=== PATIENT | female | born 1970 | race Asian ===

== ENCOUNTER 2018-02-26 07:19 | Outpatient (CLI) | payer OTHER ==
--- NOTE | 2018-02-26 09:55 | MRI Report ---
Procedure Date: 02/26/2018 Accession Number: [id number] / [id number] Procedure: MRI - Knee RT W/O CPT Code: FULL RESULT: EXAM: RIGHT KNEE MRI WITHOUT CONTRAST EXAM DATE: 02/26/2018 08:04 AM. CLINICAL HISTORY: Pain in right knee. COMPARISON: None. TECHNIQUE: Multiplanar, multisequence T1-weighted and fluid-sensitive sequences of the knee without contrast. Other: None. FINDINGS: Bones: No fractures or subluxations. No marrow edema. No bone lesions. Articular Cartilage: Unremarkable. Medial Meniscus: The medial meniscus is intact. Lateral Meniscus: The lateral meniscus is intact. Cruciate Ligaments: The anterior and posterior cruciate ligaments are intact. Collateral Ligaments: The medial collateral and lateral collateral ligamentous structures are intact. Tendons: The quadriceps, patellar, semimembranosus, and popliteus tendons are unremarkable. Musculature: No edema or fatty atrophy. Other: No effusion. No popliteal cyst. No loose bodies. The medial and lateral retinacula are intact. The subcutaneous tissues and fat pads are unremarkable. IMPRESSION: No MRI abnormalities in the knee. Menisci, cruciates and collaterals appear unremarkable. RADIA MUSCULOSKELETAL RADIOLOGY SECTION
== END 2018-02-26 07:20 | disposition home or self-care (01) ==
LOC: DI 07:19
PROVIDERS: ATTEND Physician Assistant
DX: M25.561 Pain in right knee (principal)

== ENCOUNTER 2021-03-16 19:48 | Outpatient (CLI) | payer OTHER | END 2021-03-16 23:59 | disposition home or self-care (01) | LOC: LAB.N 19:48 | PROVIDERS: ATTEND Emergency Medicine | DX: R05 Cough (principal); Z20.822 Contact with and (suspected) exposure to COVID-19 ==

== ENCOUNTER 2024-02-19 07:25 | Outpatient (CLI) | payer OTHER ==
--- NOTE | 2024-02-20 10:38 | Ultrasound Report ---
LIMITED ULTRASOUND OF LEFT BREAST: 02/19/2024 CLINICAL: Patient returns today to evaluate a focal asymmetry in the left breast. Comparison is made to exams dated: 02/19/2024 ultrasound, 02/19/2024 mammogram - [facility], 05/01/2023 ultrasound, 09/25/2022 ultrasound, 09/25/2022 mammogram, and 11/23/2018 mammogram - [facility]. Color flow and real-time ultrasound of the left breast 3 o'clock region were performed. Stinson scale images of the real-time examination were reviewed. There is a stable 0.4 cm x 0.4 cm x 0.3 cm complicated cyst in the left breast at 3 o'clock middle de pth 2 cm from the nipple. IMPRESSION: PROBABLY BENIGN The stable 0.4 cm x 0.4 cm x 0.3 cm complicated cyst in the left breast is probably benign. This was previously thought to be an fibroadenoma and is more simple appearing today. The other finding at [phone] is not soon today. A follow-up mammogram and an ultrasound in 6 months is recommended to demonstrate stability. This exam was interpreted at Station ID: [id number]. Electronically Signed By: Conrado Whitehead M.D. lc/:02/19/2024 09:15:26 Ultrasound BI-RADS: 3 Probably benign BI-RADS CATEGORY: (3) - 3 Mammo and [place] [id number] 6 month follow-up LATERALITY: (B)
--- NOTE | 2024-02-20 10:38 | Mammography Report ---
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 Comparison is made to exams dated: 05/01/2023 ultrasound, 09/25/2022 ultrasound, 09/25/2022 mammogram, 11/23/2018 mammogram, and 07/05/2015 mammogram - [facility]. There are scattered areas of fibroglandular density in both breasts (category b / 25%-50% glandular t issue). There is a focal asymmetry in the right breast at 11 o'clock posterior depth. No other significant masses, calcifications, or other findings are seen in either breast. IMPRESSION: INCOMPLETE: NEEDS ADDITIONAL IMAGING EVALUATION The focal asymmetry in the right breast is indeterminate. An ultrasound is recommended. No significant left mammographic finding. Ultrasound recommended for followup of previous sonographic probably benign findings. Based on the Tyrer Cuzick model (a risk assessment model) the patient's lifetime risk is 11.1% and he r 10 year risk is 3.4%. According to the ACR, ACS, and NCCN guidelines, an annual breast MRI exam lulú ng with mammogram is recommended if the patient's lifetime risk is 20% or greater. This exam was interpreted at Station ID: [id number]. NOTE: For mammograms, a report in lay terms will be sent to the patient. Approximately 15% of breast malignancies will not be visualized mammographically. In the management of a palpable breast mass, a negative mammogram must not discourage biopsy of a clinically suspicious lesion. Electronically Signed By: Conrado Whitehead M.D. lc/:02/19/2024 09:11:57 ACR BI-RADS Category 0: Incomplete 3340F PARENCHYMAL PATTERN: (A) - The breast(s) demonstrate(s) scattered fibroglandular densities. BI-RADS CATEGORY: (0) - 0 Ultrasound [id number] Immediate follow-up LATERALITY: (B)
--- NOTE | 2024-02-20 10:38 | Ultrasound Report ---
LIMITED ULTRASOUND OF RIGHT BREAST: 02/19/2024 CLINICAL: Patient returns today to evaluate a focal asymmetry in the right breast. Comparison is made to exams dated: 02/19/2024 mammogram - [facility], 05/01/2023 ult rasound, 09/25/2022 ultrasound, 09/25/2022 mammogram, 11/23/2018 mammogram, and 07/05/2015 mammogram - [facility]. Color flow and real-time ultrasound of the right breast 11 o'clock region were performed. Stinson scale images of the real-time examination were reviewed. There is a benign 0.6 cm x 0.2 cm x 0.7 cm cyst in the right breast at 11 o'clock middle depth 5 cm f rom the nipple. This correlates with mammography findings. IMPRESSION: BENIGN There is no sonographic evidence of malignancy. The 0.6 cm x 0.2 cm x 0.7 cm cyst in the right breast is benign. This exam was interpreted at Station ID: [id number]. Electronically Signed By: Conrado quintana/sissy:02/19/2024 09:13:16 Ultrasound BI-RADS: 2 Benign BI-RADS CATEGORY: (2) - 2 Unspecified - other recall n/a LATERALITY: (B)
== END 2024-02-19 07:26 | disposition home or self-care (01) ==
LOC: DI 07:25
PROVIDERS: ATTEND Nurse Practitioner Family
DX: R92.8 Other abnormal and inconclusive findings on diagnostic imaging of breast (principal); R92.323 Mammographic fibroglandular density, bilateral breasts; N60.02 Solitary cyst of left breast